=== PATIENT | male | born 1965 | race Caucasian/White ===

== ENCOUNTER 2021-03-07 08:34 | Outpatient (CLI) | payer BC ==
[2021-03-07 10:39] LABS: Hemoglobin 13.7 g/dL (13.5-17.5); Mean Corpuscular HGB CONC 32.2 g/dL (32.0-36.0); Mean Corpuscular Hemoglobin 29.5 pg (27.0-33.0); Mean Corpuscular Volume 91.8 fl (81.2-95.1); Platelet Count 246 10x3/uL (150-450); RBC Distribution Width 12.4 % (11.5-14.5); Red Blood Cell (RBC) Count 4.64 10x6/uL (4.32-5.72); White Blood Cell (WBC) Count 4.7 10x3/uL (3.5-10.5)
[2021-03-07 10:49] LABS: Anion Gap 13 mmol/L (10-20); BUN (Urea Nitrogen) 10 mg/dL (8.4-25.7); Calc. Creatinine Clearance 0 mL/min (70-130); Calcium 9.6 mg/dL (7.8-10.44); Carbon Dioxide 28 mmol/L (22-29); Chloride 103 mmol/L (98-107); Glucose 109 mg/dL (70-105); Potassium 4.2 mmol/L (3.5-5.1); Sodium 140 mmol/L (136-145)
[2021-03-07 17:36] LABS: SARS-CoV-2 PCR by NAA Not Detected (NotDetected)
== END 2021-03-07 08:35 | disposition home or self-care (01) ==
LOC: LABBT 08:34
PROVIDERS: ATTEND Neurological Surgery
DX: Z01.818 Encounter for other preprocedural examination (principal); M48.062 Spinal stenosis, lumbar region with neurogenic claudication; Z20.822 Contact with and (suspected) exposure to COVID-19
CPT/HCPCS: 80048; 85027; 93005; 93010; U0003; U0005

== ENCOUNTER 2021-03-10 06:05 | Observation (INO) | payer BC ==
[2021-03-09 11:03] VITALS: BMI 33.2
[2021-03-10] MEDS ORDERED: Fentanyl 100 MCG/2 ML VIAL ONE ×3 (06:12→11:17)
[2021-03-10] MEDS ORDERED: Lidocaine 2% Jelly 5 ML TUBE ONE (06:12)
[2021-03-10] MEDS ORDERED: Midazolam HCl 2 mg/2 ml Vial ONE ×2 (06:12→06:47)
[2021-03-10] MEDS ORDERED: HYDROmorphone 0.5 MG/0.5 ML SYRINGE ONE ×4 (06:12→11:06)
[2021-03-10] MEDS ORDERED: ceFAZolin 2 GM/DEX 5% 100 ML BAG ONE (06:25)
[2021-03-10] MEDS ORDERED: Ketamine 50 MG/ML (10ML VIAL) ONE (07:00)
[2021-03-10] MEDS ORDERED: Ondansetron PF 4 MG/2 ML Vial ONE (07:36)
[2021-03-10] MEDS ORDERED: Dexamethasone 20 MG/5 ML VIAL ONE (07:36)
[2021-03-10] MEDS ORDERED: Glycopyrrolate 0.2 MG/ML 5 ML SYRINGE ONE (07:36)
[2021-03-10] MEDS ORDERED: Lidocaine 1% PF 5 ML VIAL ONE (07:36)
[2021-03-10] MEDS ORDERED: PHENYLEPHRINE-NS 100 MCG/ML 10 ML SYRINGE ONE ×2 (07:36→08:35)
[2021-03-10] MEDS ORDERED: Rocuronium Bromide 10 MG/ML (10ML VIAL) ONE (07:36)
[2021-03-10] MEDS ORDERED: PROPOFOL 200 MG/20 ML VIAL ONE (07:36)
[2021-03-10] MEDS ORDERED: HYDROmorphone 2 MG/ML VIAL ONE (09:54)
[2021-03-10] MEDS ORDERED: diphenhydrAMINE 50 MG/ML VIAL IM/IV PRN (12:15)
[2021-03-10] MEDS ORDERED: diphenhydrAMINE 25 MG CAP PO PRN ×2 (12:15→13:45)
[2021-03-10] MEDS ORDERED: Naloxone HCl 0.4 mg/ml Vial IV PRN (12:15)
[2021-03-10] MEDS ORDERED: Fentanyl CADD 100 ML IVPB SCH (12:15)
[2021-03-10] MEDS ORDERED: Ondansetron PF 4 MG/2 ML Vial IVP PRN (12:15)
[2021-03-10] MEDS ORDERED: Promethazine HCl 25 MG/ML VIAL IM PRN ×2 (12:15→13:45)
[2021-03-10] MEDS ORDERED: Zolpidem Tartrate 5 MG TAB PO PRN (12:15)
[2021-03-10] MEDS ORDERED: Albuterol Sulfate 1.25 MG/3 ML NEB NEB PRN (13:28)
[2021-03-10] MEDS ORDERED: Cyclobenzaprine 10 MG TAB PO PRN (13:29)
[2021-03-10] MEDS ORDERED: [UNRECOGNIZED DRUG - OTHER] PO PRN (13:30)
[2021-03-10] MEDS ORDERED: Milk Of Magnesia 30 ML UDCUP PO PRN (13:45)
[2021-03-10] MEDS ORDERED: Promethazine 25 MG TAB PO PRN (13:45)
[2021-03-10] MEDS ORDERED: diphenhydrAMINE 50 MG/ML VIAL IVP PRN (13:45)
[2021-03-10] MEDS ORDERED: Ondansetron PF 4 MG/2 ML Vial IM PRN (13:45)
[2021-03-10] MEDS ORDERED: Promethazine HCl 12.5 MG SUPP PR PRN (13:45)
[2021-03-10] MEDS ORDERED: Mag-Al 1200 mg/1200 mg/30 ML UDCUP PO PRN (13:45)
[2021-03-10] MEDS: tiZANidine HCl 4 MG TAB PO PRN ×2 (15:06→20:59)
[2021-03-10] MEDS: Pregabalin 50 MG CAP PO SCH ×2 (15:06→20:58)
[2021-03-10] MEDS: Sodium Chloride 0.9% 1,000 ML IV SCH (15:07)
[2021-03-10] MEDS ORDERED: FLU VACC QS2021-22(6MOS UP)/PF 60 MCG/0.5 ML SYRINGE IM ONE (15:45)
[2021-03-10] MEDS ORDERED: Albuterol Sulfate 2.5 mg/3 ml Neb NEB PRN (16:26)
[2021-03-10] MEDS ORDERED: Diphenoxylate HCl/Atropine Tablet PO PRN (17:00)
[2021-03-10] MEDS: Acetaminophen 500 MG TAB PO PRN (20:57)
[2021-03-10] MEDS ORDERED: Meloxicam 15 MG TAB PO SCH (21:00)
[2021-03-10] MEDS ORDERED: Atorvastatin Calcium 10 MG TAB PO SCH (21:00)
[2021-03-10] MEDS ORDERED: Losartan/Hydrochlorothiazide 100 mg/25 mg Tablet PO SCH (21:00)
[2021-03-10] MEDS ORDERED: Allopurinol 300 MG TAB PO SCH (21:00)
[2021-03-11] MEDS: Sodium Chloride 0.9% 1,000 ML IV SCH ×2 (05:21→16:23)
[2021-03-11] MEDS ORDERED: Tamsulosin HCl 0.4 MG CAP PO SCH ×2 (06:00→09:00)
[2021-03-11] MEDS: Acetaminophen 500 MG TAB PO PRN (06:35)
[2021-03-11] MEDS: tiZANidine HCl 4 MG TAB PO PRN ×2 (06:35→14:25)
[2021-03-11] MEDS ORDERED: HYDROcodone/Acetaminophen 10/325 mg Tablet PO PRN (08:06)
[2021-03-11] MEDS ORDERED: Morphine 4 MG/ML VIAL SLOW IVP PRN (08:15)
[2021-03-11] MEDS: Pregabalin 50 MG CAP PO SCH ×2 (09:12→14:25)
[2021-03-11] MEDS: HYDROcodone/Acetaminophen 10/325 mg Tablet PO PRN ×2 (12:27→16:26)
[2021-03-11 12:40] VITALS: BP 122/76; TEMP 97.5
== END 2021-03-11 16:45 | disposition home or self-care (01) ==
LOC: SDC 06:05 → SURG A 11:08
PROVIDERS: ADMIT Neurological Surgery; ATTEND Neurological Surgery
PROC: 0SG0071 Fusion of Lumbar Vertebral Joint with Autologous Tissue Substitute, Posterior Approach, Posterior Column, Open Approach (ICD-10-PCS; principal; 2021-03-10)
DX: M48.062 Spinal stenosis, lumbar region with neurogenic claudication (principal); I10 Essential (primary) hypertension; E78.5 Hyperlipidemia, unspecified; J45.909 Unspecified asthma, uncomplicated; G62.9 Polyneuropathy, unspecified; N40.0 Benign prostatic hyperplasia without lower urinary tract symptoms; G89.29 Other chronic pain; M54.9 Dorsalgia, unspecified; Z79.1 Long term (current) use of non-steroidal anti-inflammatories (NSAID); Z79.899 Other long term (current) drug therapy
CPT/HCPCS: 76000; C1713; C1768; G0378; J1100; J1170; J2250; J2405; J2704; J3010; J3370; J7050

== ENCOUNTER 2021-03-31 12:20 | Outpatient (CLI) | payer BC | END 2021-03-31 12:21 | disposition home or self-care (01) | LOC: TBSIIMAG 12:20 | PROVIDERS: ATTEND Neurological Surgery | DX: M48.062 Spinal stenosis, lumbar region with neurogenic claudication (principal); Z98.890 Other specified postprocedural states | CPT/HCPCS: 72100 ==

== ENCOUNTER 2023-05-03 15:02 | Outpatient (CLI) | payer BC ==
[2023-05-03 16:35] LABS: Hematocrit 39.9 % (38.8-50.0); Hemoglobin 13.4 g/dL (13.5-17.5); Mean Corpuscular HGB CONC 33.6 g/dL (32.0-36.0); Mean Corpuscular Hemoglobin 30.5 pg (27.0-33.0); Mean Corpuscular Volume 90.7 fl (81.2-95.1); Mean Platelet Volume 11.6 fl (7.4-10.4); Platelet Count 282 10x3/uL (150-450); RBC Distribution Width 12.6 % (11.5-14.5); White Blood Cell (WBC) Count 5.2 10x3/uL (3.5-10.5)
[2023-05-03 16:51] LABS: Anion Gap 13 mmol/L (10-20); BUN (Urea Nitrogen) 14 mg/dL (8.4-25.7); Calc. Creatinine Clearance 0 mL/min (70-130); Calcium 9.5 mg/dL (7.8-10.44); Carbon Dioxide 28 mmol/L (22-29); Chloride 99 mmol/L (98-107); Estimated GFR 98; Glucose 90 mg/dL (70-105); Potassium 4.7 mmol/L (3.5-5.1); Sodium 135 mmol/L (136-145)
== END 2023-05-03 15:03 | disposition home or self-care (01) ==
LOC: LABBT 15:02
PROVIDERS: ATTEND Neurological Surgery
DX: Z01.818 Encounter for other preprocedural examination (principal); M54.12 Radiculopathy, cervical region; Z98.1 Arthrodesis status
CPT/HCPCS: 80048; 85027; 93005; 93010

== ENCOUNTER 2023-05-07 06:28 | Day surgery (SDC) | payer BC ==
[2023-05-03 15:41] VITALS: BMI 29.8
[2023-05-07] MEDS ORDERED: Dexamethasone 4 mg/ml Vial ONE ×2 (06:52→08:52)
[2023-05-07] MEDS ORDERED: Lidocaine 1% PF 5 ML VIAL ONE (06:52)
[2023-05-07] MEDS ORDERED: Ondansetron PF 4 MG/2 ML Vial ONE (06:52)
[2023-05-07] MEDS ORDERED: SUGAMMADEX SODIUM 200 MG/2 ML VIAL ONE ×2 (06:52→09:22)
[2023-05-07] MEDS ORDERED: PROPOFOL 40 ML ONE (06:52)
[2023-05-07] MEDS ORDERED: Rocuronium Bromide 10 MG/ML (10ML VIAL) ONE (06:52)
[2023-05-07] MEDS ORDERED: Phenylephrine 40 MG/NS 250 ML 250 ML ONE (06:53)
[2023-05-07] MEDS ORDERED: fentaNYL 50 mcg/mL 1 mL Vial ONE ×3 (06:57→08:02)
[2023-05-07] MEDS ORDERED: PHENYLEPHRINE-NS 100 MCG/ML 10 ML SYRINGE ONE (06:59)
[2023-05-07] MEDS ORDERED: Thrombin 5000 UNITS/5 ML VIAL ONE (07:39)
[2023-05-07] MEDS ORDERED: EPINEPHrine 1 MG/ML VIAL ONE (07:39)
[2023-05-07] MEDS ORDERED: Bupivacaine PF 0.5% 30 ML VIAL ONE (07:40)
[2023-05-07] MEDS ORDERED: Magnesium 5 GM/10 ML VIAL ONE (07:55)
[2023-05-07] MEDS ORDERED: Ketamine In 0.9 % NaCl 50 MG/5 ML SYRINGE ONE (08:01)
[2023-05-07] MEDS ORDERED: Midazolam HCl 2 mg/2 ml Vial ONE (08:02)
[2023-05-07] MEDS ORDERED: HYDROmorphone 2 MG/ML VIAL ONE (08:03)
[2023-05-07] MEDS ORDERED: Sodium Chloride 0.9% 100 ML ONE (08:07)
[2023-05-07] MEDS ORDERED: CEFAZOLIN 2 GM VIAL ONE (08:07)
[2023-05-07] MEDS ORDERED: Dexmedetomidine 200 MCG/2 ML VIAL ONE (08:52)
[2023-05-07] MEDS ORDERED: Vecuronium 10 MG VIAL ONE (08:52)
[2023-05-07] MEDS ORDERED: HYDROmorphone 0.5 MG/0.5 ML SYRINGE ONE ×3 (09:54→10:32)
[2023-05-07] MEDS ORDERED: Fentanyl 250 MCG/5 ML VIAL ONE (10:45)
[2023-05-07] MEDS ORDERED: Cyclobenzaprine 10 MG TAB ONE (12:26)
== END 2023-05-07 12:55 | disposition home or self-care (01) ==
LOC: SDC 06:28
PROVIDERS: ATTEND Neurological Surgery
PROC: 0RG10A0 Fusion of Cervical Vertebral Joint with Interbody Fusion Device, Anterior Approach, Anterior Column, Open Approach (ICD-10-PCS; principal; 2023-05-07)
PROC: 01N10ZZ Release Cervical Nerve, Open Approach (ICD-10-PCS; principal; 2023-05-07)
DX: M54.12 Radiculopathy, cervical region (principal); G89.29 Other chronic pain
CPT/HCPCS: C1713; J0171; J1100; J1170; J2250; J2405; J2704; J3010; J3475; J3490; S0020